=== PATIENT | male | born 1980 | race African-American/Black ===

== ENCOUNTER 2017-09-08 20:23 | Emergency (ER) | payer MEDICAID ==
[~2017-09-08] VITALS: Ht 180.3 cm; Wt 117.9 kg
[~2017-09-08 20:23] MED LIST: CEPHALEXIN500 MG ORAL; IBUPROFEN600 MG ORAL
[2017-09-08] MEDS ORDERED: ALBUTEROL2.5 MG/3 M INH (20:42)
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
[2017-09-08] MEDS: Norco 5mg/325mg tab ORAL ONE (21:08)
[2017-09-08] MEDS ORDERED: HYDROCODON-ACE1 EA15 ORAL (21:33)
[2017-09-08] MEDS ORDERED: IBUPROFEN600 MG ORAL (21:33)
[2017-09-08 22:30] VITALS: BP 136/87
--- NOTE | 2017-09-09 10:45 | Diagnostic Imaging Report ---
Indication: Reason For Exam: TRAUMA Technique: One view of the chest, multiple views of the right ribs Comparison: none Findings: Chest radiograph demonstrates clear lungs, no infiltrates, effusions, or pneumothorax. Normal cardiac mediastinal silhouette Rib radiographs demonstrate no evidence of acute rib fracture. Impression: Negative
== END 2017-09-09 04:41 | disposition home or self-care (01) ==
LOC: EMR 20:55
DX: S20.211A Contusion of right front wall of thorax, initial encounter (principal); V28.0XXA Motorcycle driver injured in noncollision transport accident in nontraffic accident, initial encounter; Y92.89 Other specified places as the place of occurrence of the external cause; J45.909 Unspecified asthma, uncomplicated
CPT/HCPCS: 99283

== ENCOUNTER 2017-09-23 20:22 | Emergency (ER) | payer MEDICAID ==
[~2017-09-23] VITALS: Ht 180.3 cm; Wt 117.9 kg
[~2017-09-23 20:22] MED LIST changes: +ALBUTEROL2.5 MG/3 M INH; +HYDROCODON-ACE1 EA15 ORAL
[2017-09-23] MEDS ORDERED: Albuterol/Ipratropium 3ml neb HHN ONE (21:15)
--- NOTE | 2017-09-23 21:20 | Emergency Room Report ---
History of Present Illness General Chief Complaint: Asthma Source: Patient Present Illness HPI Is a 37-year-old male who has history of asthma. He presents with chief complaint of asthma exacerbation. Onset this afternoon. Occur when he was at work. Unknown precipitant. No relief with his inhaler. Never been intubated before. Unknown last time he used steroids. Never been admitted. No fever chills but no nausea no vomiting. Worse with exertion. Allergies: Coded Allergies: No Known Allergies (Unverified , 09/07/15) Patient History Past Medical History: see triage record, old chart reviewed, asthma Past Surgical History: none Pertinent Family History: none Social History: Reports: smoking Immunizations: other Reviewed Nursing Documentation: PMH: Agreed, PSxH: Agreed Nursing Documentation-PMH Hx Asthma: Yes Review of Systems Eye: Denies: eye pain, blurred vision ENT: Denies: ear pain, nose congestion, throat swelling Respiratory: Reports: cough, shortness of breath, wheezing Cardiovascular: Denies: chest pain, palpitations Gastrointestinal: Denies: abdominal pain, diarrhea, nausea, vomiting Musculoskeletal: Denies: back pain, joint pain Skin: Denies: rash Neurological: Denies: headache, numbness Endocrine: Denies: increased thirst, increased urine Hematologic/Lymphatic: Denies: easy bruising All Other Systems: negative except mentioned in HPI Physical Exam Vital Signs Date Time Temp Pulse Resp B/P (MAP) Pulse Ox O2 Delivery O2 Flow Rate FiO2 09/23/17 20:31 98.1 100 20 155/89 93 Room Air vitals with high blood pressure Sp02 EP Interpretation: reviewed, normal General Appearance: well appearing, no apparent distress, alert Head: normocephalic, atraumatic Eyes: bilateral eye PERRL, bilateral eye EOMI ENT: hearing grossly normal, normal pharynx Neck: full range of motion, supple, no meningismus Respiratory: chest non-tender, decreased breath sounds, accessory muscle use, wheezing Cardiovascular #1: regular rate, rhythm, no murmur Gastrointestinal: normal bowel sounds, non tender, no mass, no organomegaly, no bruit, non-distended Musculoskeletal: back normal, gait/station normal, normal range of motion Psychiatric: mood/affect normal Skin: warm/dry Medical Decision Making Diagnostic Impression: Primary Impression: Asthma attack Qualified Codes: J45.21 - Mild intermittent asthma with (acute) exacerbation ER Course Patient presents with an asthma exacerbation. Cleared after breathing treatment and steroid. Back to baseline. We'll discharge home. No evidence of PE, ACS, pneumonia clinically. Last Vital Signs Date Time Temp Pulse Resp B/P (MAP) Pulse Ox O2 Delivery O2 Flow Rate FiO2 09/23/17 21:09 91 20 Room Air 09/23/17 21:09 94 09/23/17 20:31 98.1 155/89 Status: improved Disposition: HOME, SELF-CARE Condition: Stable Scripts Prednisone* (PREDNISONE*) 20 Mg Tablet 60 MG ORAL DAILY, #12 TAB Prov: BREA BEAVER M.D. 09/23/17 Albuterol Sulfate* (ALBUTEROL SULFATE MDI*) 8.5 Gm Hfa.aer.ad 2 PUFF INH Q4H Y for cough/wheezing, #1 EA 0 Refills Prov: BREA BEAVER M.D. 09/23/17 Patient Instructions: Asthma, Adult Additional Instructions: Follow up with your doctor in 7 days. Return if worse. BREA BEAVER M.D. Sep 23, 2017 21:20
[2017-09-23] MEDS ORDERED: Albuterol ud Inhalation HHN ONE (21:45)
[2017-09-23] MEDS ORDERED: ALBUTEROL SULF8.5 GM INH (22:00)
[2017-09-23] MEDS ORDERED: PREDNISONE20 MG ORAL (22:00)
[2017-09-23 22:12] VITALS: BP 155/89
== END 2017-09-23 22:42 | disposition home or self-care (01) ==
LOC: EMR 21:10
DX: J45.901 Unspecified asthma with (acute) exacerbation (principal); F17.200 Nicotine dependence, unspecified, uncomplicated
CPT/HCPCS: 94640; 94664; 99284; J7512; J7620